=== PATIENT | male | born 1965 | race Caucasian/White ===

== ENCOUNTER 2017-11-09 10:55 | Emergency (ER) | payer OTHER ==
[~2017-11-09] VITALS: Ht 175.3 cm; Wt 79.4 kg
[2017-11-09 11:05] VITALS: BP 147/90
[2017-11-09] MEDS ORDERED: HYDROCHLOROTH12.5 M2 PO (12:00)
[2017-11-09 13:29] LABS: ABSOLUTE BASOPHIL COUNT 0 /CUMM (0.0-0.2); ABSOLUTE EOSINOPHIL COUNT 0 /CUMM (0.0-0.7); ABSOLUTE GRANULOCYTE CT 4.1 /CUMM (1.4-6.5); ABSOLUTE LYMPH COUNT 1.2 /CUMM (1.2-3.4); ABSOLUTE MONOCYTE COUNT 0.7 /CUMM (0.10-0.60); BASOPHIL % 0.4 % (0.0-2.0); EOSINOPHIL % 0.3 % (0-5); GRANULOCYTE % 68.7 % (42.2-75.2); HEMATOCRIT 47.1 % (42-52); MEAN CORPUSCULAR HGB 34.3 PG (27.0-31.0); MEAN CORPUSCULAR HGB CONC 35.4 G/DL (33.0-37.0); MEAN CORPUSCULAR VOLUME 96.9 FL (80.0-94.0); PLATELET COUNT 205 /CUMM (130-400); RBC DISTRIBUTION WIDTH 12.6 % (11.5-14.5); RED BLOOD CELL CT 4.86 /CUMM (4.70-6.10)
--- NOTE | 2017-11-09 13:30 | ED GENERAL ADULT ---
History of Present Illness General Chief Complaint: Dizziness Stated Complaint: DIZZY, FACIAL AND BILATERAL HAND NUMBNESS X1 DAY Source: patient, family Exam Limitations: no limitations Vital Signs & Intake/Output Vital Signs & Intake/Output Vital Signs Date Time Temp Pulse Resp B/P B/P Pulse O2 O2 Flow FiO2 Mean Ox Delivery Rate 11/09 1105 97.4 80 20 147/90 97 Room Air Allergies Coded Allergies: NO KNOWN ALLERGIES (12/23/11) Triage Note: PT TO ED C/O "PANIC ATTACK" C/O FEELING B/L HAND NUMBESS. H/O ANXIETY. DENIES PAIN. STATES SINCE HIS LYME DISEASE DIAGNOSIS 3 YEARS AGO HE GETS THESE PANIC ATTACKS. Triage Nurses Notes Reviewed? yes Onset: Gradual Duration: hour(s): Timing: single episode today Injury Environment: work Severity: moderate HPI: 52yo male presents to ED complaining of "panic attack" symptoms. Patient has had panic attacks for the past 3 years. HE states this morning he experienced a panic attack at which time he felt aggitated and anxious, felt numbness and tingling of face and both hands, and felt restless as though he could not sit still. Sometimes he experiences multiple panic attacks, "in waves". Since the attack the patient has had dizziness and felt "drained" which is what prompted his ER visit. The patient denies chest pain, dyspnea, abdominal pain, head trauma. (Emmie Montez) Reconcile Medications Hydrochlorothiazide 12.5 MG TABLET 1 TAB PO DAILY WATER RETENTION (Reported) Lorazepam (Ativan) 0.5 MG TABLET 1 TAB PO BIDP PRN panic attack (Zaid OWENS,Axel) Past History Travel History Traveled to [place] past 21 day No Medical History Any Pertinent Medical History? see below for history Musculoskeletal: LYME Psychiatric: anxiety Surgical History Surgical History: non-contributory Psychosocial History What is your primary language Latvian Tobacco Use: Never used ETOH Use: occasional use Illicit Drug Use: denies illicit drug use Family History Hx Contributory? No (Emmie Montez) Review of Systems Review of Systems Constitutional: Reports: see HPI. EENTM: Reports: no symptoms. Respiratory: Reports: no symptoms. Cardiovascular: Reports: no symptoms. GI: Reports: no symptoms. Genitourinary: Reports: no symptoms. Musculoskeletal: Reports: no symptoms. Skin: Reports: no symptoms. Neurological/Psychological: Reports: see HPI. Hematologic/Endocrine: Reports: no symptoms. Immunologic/Allergic: Reports: no symptoms. All Other Systems: Reviewed and Negative (Barbi RIGGS,Emmie Henson) Physical Exam Physical Exam General Appearance: well developed/nourished, no apparent distress, alert, awake Head: atraumatic, normal appearance Eyes: Bilateral: normal appearance. 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 No CVA/TIA Diagnosis: No Sepsis Present: No Sepsis Focused Exam Completed? No (Barbi RIGGS,Emmie Henson) Progress Differential Diagnoses I considered the following diagnoses in my evaluation of the patient: [Anxiety, panic disorder, CVA/TIA, electrolyte abnormality] Plan of Care: Orders Procedure Date/time Status MISTAKE 11/09 1330 Active TROPONIN LEVEL 11/09 1300 Complete EKG 11/09 1258 Active URINALYSIS 11/09 1250 Complete COMPREHENSIVE METABOLIC PANEL 11/09 1250 Complete CBC WITHOUT DIFFERENTIAL 11/09 1250 Complete Laboratory Tests 11/09/17 1300: Anion Gap 11, Estimated GFR > 60, BUN/Creatinine Ratio 17.5, Glucose 99, Calcium 9.7, Total Bilirubin 1.5 H, AST 74 H, ALT 102 H, Alkaline Phosphatase 46, Troponin I < 0.01, Total Protein 7.2, Albumin 4.2, Globulin 3.0, Albumin/ Globulin Ratio 1.4, CBC w Diff NO MAN DIFF REQ, RBC 4.86, MCV 96.9 H, MCH 34.3 H, MCHC 35.4, RDW 12.6, MPV 8.0, Gran % 68.7, Lymphocytes % 19.6 L, Monocytes % 11.0 H, Eosinophils % 0.3, Basophils % 0.4, Absolute Granulocytes 4.1, Absolute Lymphocytes 1.2, Absolute Monocytes 0.7 H, Absolute Eosinophils 0, Absolute Basophils 0, Urine Color YEL, Urine Clarity CLEAR, Urine pH 7.5, Ur Specific [place] 1.010, Urine Protein NEG, Urine Ketones 15 H, Urine Nitrite NEG, Urine Bilirubin NEG, Urine Urobilinogen 0.2, Ur Leukocyte Esterase NEG, Ur Microscopic EXAM NOT REQUIRED, Urine Hemoglobin NEG, Urine Glucose NEG 11/09/17 1258: Troponin I Cancelled Patient's symptoms do not appear consistent with CVA/TIA, he had paresthesias bilaterally and reports the symptoms with previous episodes which she attributes to panic attacks. Patient has been having these symptoms for 3 years, they're chronic. Labs are stable, patient sitting in stretcher in no acute distress, no abnormal neurologic findings. Patient to take Ativan when necessary for panic attack symptoms and follow-up with psychiatry. The patient agrees with the plan of care. He feels ready to go home at this time. Initial ED EKG: sinus rhythm @73bpm, nonspecific ST changes (Barbi RIGGS,Emmie Henson) Departure Departure Disposition: HOME OR SELF CARE Condition: Stable Clinical Impression Primary Impression: Anxiety Secondary Impressions: Paresthesias Referrals: Jimy OWENS,Karlo Kathleen (PCP/Family) Additional Instructions: Take Ativan as prescribed as needed for panic-like symptoms. Follow-up with the Specialist you were referred to you today. Return if worsening symptoms or concerns. Please note that there might be incidental findings in your evaluation that are unrelated to the current emergency department visit. Please notify your primary care doctor about this emergency department visit in order to obtain and review all of the testing performed so that these incidental findings can be monitored as needed. If you had an x-ray performed, please understand that some fractures may not be seen on the initial set of x-rays. If your symptoms persist you might need a repeat set of x-rays to check for such a fracture. If you had a laceration evaluated, please understand that foreign bodies such as glass or wood may not be visible to the naked eye or on plain x-rays. If the wound becomes red, swollen, increasingly more painful or if there is any drainage from the wound, please have it reevaluated by a physician for the possibility of a retained foreign body. If you're unable to follow up as outlined in the discharge instructions please return to the emergency department. Thank you for choosing the [facility] for your care. It was a pleasure to serve you today. Departure Forms: Customer Survey General Discharge Information Prescriptions: Current Visit Scripts Lorazepam (Ativan) 1 TAB PO BIDP PRN panic attack #12 TAB (Barbi RIGGS,Emmie Henson) PA/[employer] Co-Sign Statement Statement: ED Attending supervision documentation- I saw and evaluated the patient. I have also reviewed all the pertinent lab results and diagnostic results. I agree with the findings and the plan of care as documented in the PA's/[employer]'s documentation. x I have reviewed the ED Record and agree with the PA's/[employer]'s documentation. [] Additions or exceptions (if any) to the PAs/[employer]'s note and plan are summarized below: [] (Zaid OWENS,Axel) Critical Care Note Critical Care Note Critical Care Time: non-applicable (Barbi RIGGS,Emmie Henson)
[2017-11-09] MEDS ORDERED: ATIVAN0.5 M1 PO (14:24)
== END 2017-11-09 14:37 ==
LOC: ERH 10:55
PROVIDERS: Physician Assistant
DX: F41.9 Anxiety disorder, unspecified (principal); R20.2 Paresthesia of skin
CPT/HCPCS: 81003; 93005; 93010